=== PATIENT | male | born 1980 | race Caucasian/White ===

== ENCOUNTER 2021-11-29 15:39 | Outpatient (CLI) | payer OTHER, SELFPAY ==
--- NOTE | ~2021-11-29 | US_ITS ---
EXAMINATION: US thyroid DATE: 11/29/2021 16:12 INDICATION: Nontoxic single thyroid nodule TECHNIQUE: Multiple ultrasound images of the thyroid were obtained. COMPARISON: None. FINDINGS: The right thyroid lobe measures 6.4 x 2.6 x 2.1 cm. The left thyroid lobe measures 7.4 x 2.6 x 3.3 c m. 2.1 cm solid isoechoic nodule with ill-defined margins which is not wider than tall and without e chogenic foci in the right thyroid lobe (TI-RADS 3, mildly suspicious , FNA if >=2.5 cm, annual follo wup is >1.5 cm). There are several solid or predominantly solid nodules in the left thyroid with chucho lar imaging features, the largest measuring 2.7 cm and the next largest 2.3 cm . IMPRESSION: 1. Several TI-RADS 3 nodules, the largest measuring 2.7 cm in the left thyroid lobe medially criteria for ultrasound-guided biopsy which would be recommended. Reviewed, dictated and finalized at location A. L FOLDER
== END 2021-11-29 15:40 | disposition home or self-care (01) ==
LOC: ANHIMG 15:42
PROVIDERS: PCP Internal Medicine; Visit Provider Internal Medicine
DX: E04.2 Nontoxic multinodular goiter (principal)
CPT/HCPCS: 76536

== ENCOUNTER 2022-03-09 10:23 | Outpatient (CLI) | payer OTHER, SELFPAY ==
--- NOTE | ~2022-03-09 | US_ITS ---
EXAMINATION: US FNA w image guidance DATE: 03/09/2022 11:46 INDICATION: Left thyroid nodule. TECHNIQUE: The procedure and its benefits and risks were discussed with the patient. Risks specifically discusse d included bleeding. The patient verbalized understanding of the risks and agreed to proceed. The nec k was prepped and draped in the usual sterile manner. 1% lidocaine was used for local anesthesia. 6 passes were made with a 25G needle into the lesion under ultrasound guidance. There were no immedia te complications. FINDINGS: Grayscale ultrasound images demonstrate needles advanced into a 2.7 cm nodule in inferior left thyroi d lobe for biopsy. IMPRESSION: 1. Ultrasound-guided fine needle aspiration of a 2.7 cm nodule in inferior left thyroid lobe. Reviewed, dictated and finalized at location A. IMPRESSION: 1. Ultrasound-guided fine needle aspiration of a 2.7 cm nodule in inferior lef t thyroid lobe.
== END 2022-03-09 10:24 | disposition home or self-care (01) ==
LOC: ANHIMG 10:28
PROVIDERS: PCP Internal Medicine; Visit Provider Internal Medicine Endocrinology, Diabetes & Metabolism
DX: E04.1 Nontoxic single thyroid nodule (principal)
CPT/HCPCS: 10005; 88173; 88305

== ENCOUNTER 2022-04-04 10:11 | Outpatient (CLI) | payer OTHER, SELFPAY ==
--- NOTE | ~2022-04-04 | US_ITS ---
EXAMINATION: US FNA w image guidance DATE: 04/04/2022 10:56 INDICATION: Left thyroid nodule. TECHNIQUE: The procedure and its benefits and risks were discussed with the patient. Risks specifically discusse d included bleeding. The patient verbalized understanding of the risks and agreed to proceed. The nec k was prepped and draped in the usual sterile manner. 1% lidocaine was used for local anesthesia. 6 passes were made with a 25G needle into the lesion under ultrasound guidance. There were no immedia te complications. FINDINGS: Grayscale ultrasound images demonstrate needles advanced into a 2.7 cm nodule in inferior left thyroi d lobe for biopsy. IMPRESSION: 1. Ultrasound-guided fine needle aspiration of a 2.7 cm nodule in inferior left thyroid lobe. Reviewed, dictated and finalized at location A. IMPRESSION: 1. Ultrasound-guided fine needle aspiration of a 2.7 cm nodule in inferior lef t thyroid lobe.
== END 2022-04-04 10:12 | disposition home or self-care (01) ==
PROVIDERS: PCP Internal Medicine; Visit Provider Internal Medicine Endocrinology, Diabetes & Metabolism
DX: E04.1 Nontoxic single thyroid nodule (principal)
CPT/HCPCS: 10005; 88173; 88305

== ENCOUNTER → 2023-07-27 13:57 | Outpatient (CLI) | payer BC, SELFPAY ==
--- NOTE | ~2023-07-27 | XR_ITS ---
EXAMINATION: [id number] INDICATION: Pleurodynia TECHNIQUE: PA view of the chest and 3 views of the left ribs were obtained. COMPARISON: None. FINDINGS: The lungs are free of acute opacities. No pleural effusion or pneumothorax. The cardiomedia stinal silhouette is normal. IMPRESSION: 1. No acute cardiopulmonary abnormality or evidence of displaced rib fracture. Reviewed, dictated and finalized at location B.
== END ==
PROVIDERS: PCP Internal Medicine; Visit Provider Physician Assistant
DX: R07.81 Pleurodynia (principal)
CPT/HCPCS: 71101

== ENCOUNTER 2024-01-02 15:01 | Outpatient (CLI) | payer BC, SELFPAY ==
--- NOTE | ~2024-01-02 | XR_ITS ---
XR chest 2V DATE: 01/02/2024 15:45 INDICATION: Chest pain TECHNIQUE: PA and lateral views COMPARISON: None FINDINGS: Moderate hyperinflation. No pulmonary infiltrate or consolidation, pleural effusion or pulm onary vascular congestion or pneumothorax. Normal heart size. No hilar or mediastinal enlargement. Moderate loss of height and anterior wedging of T12. IMPRESSION: Moderate bilateral hyperinflation; otherwise no active cardiopulmonary disease Reviewed, dictated and finalized at location B. IMPRESSION: Moderate bilateral hyperinflation; otherwise no active cardiopulmon raymond disease
--- NOTE | 2024-01-02 15:13 | ECG_ITS ---
Measurements Intervals [place] Rate: 56 P: 66 VT: 144 QRS: 61 QRSD: 120 T: 18 QT: 384 QTc: 372 Interpretive Statements SINUS BRADYCARDIA INTRAVENTRICULAR CONDUCTION DELAY BORDERLINE T WAVE ABNORMALITY- INFERIOR LEADS BORDERLINE ECG NO PREVIOUS ECG AVAILABLE FOR COMPARISON Electronically Signed On 01-02-2024 16:01:47 CDT by Brian Siddiqui D.O.
== END 2024-01-02 15:02 | disposition home or self-care (01) ==
PROVIDERS: PCP Internal Medicine; Visit Provider Internal Medicine
DX: R07.9 Chest pain, unspecified (principal); I45.9 Conduction disorder, unspecified; R91.8 Other nonspecific abnormal finding of lung field
CPT/HCPCS: 71046; 93005

== ENCOUNTER 2024-06-25 11:07 | Outpatient (CLI) | payer BC, SELFPAY ==
--- NOTE | ~2024-06-25 | XR_ITS ---
EXAMINATION: XR abdomen obstructive series DATE: 06/25/2024 11:26 INDICATION: Abdominal pain. TECHNIQUE: Upright and supine views of the abdomen on 3 radiographs were obtained. COMPARISON: CT abdomen and pelvis 04/30/2014 FINDINGS: There are no dilated loops of bowel. There is a moderate volume of stool in the colon. No f ree intraperitoneal gas. IMPRESSION: 1. Normal bowel gas pattern. Reviewed, dictated and finalized at location A.
--- NOTE | ~2024-06-25 | US_ITS ---
EXAMINATION: US scrotum doppler DATE: 06/25/2024 13:13 INDICATION: Testicular pain and scrotal swelling TECHNIQUE: Testicular sonogram utilizing grayscale and Doppler COMPARISON: None. FINDINGS: The right testis measures 4.6 x 2.5 x 4.0 cm. The left testis measures 4.1 x 2.4 x 3.2 cm. Symmetric normal grayscale appearance to both testes. There is normal vascular flow to both testes. The right e pididymis is normal with normal vascular flow. The left epididymis appears thickened with increased v ascular flow on Valsalva suspicious for epididymitis.. Mild bilateral varicoceles with borderline dil ated veins which augment with Valsalva on both the left and right. No right-sided hydrocele and minim al left hydrocele. IMPRESSION: 1. Enlarged hypoechoic left epididymis with increased vascular flow on color Doppler and minimal lef t hydrocele suspicious for epididymitis. Reviewed, dictated and finalized at location B. IMPRESSION: 1. Enlarged hypoechoic left epididymis with increased vascular flow on color D oppler and minimal left hydrocele suspicious for epididymitis.
== END 2024-06-25 11:08 | disposition home or self-care (01) ==
PROVIDERS: PCP Family Medicine; Visit Provider Family Medicine
DX: N50.819 Testicular pain, unspecified (principal)
CPT/HCPCS: 74019; 76870; 93976

== ENCOUNTER 2025-01-20 12:10 | Outpatient (CLI) | payer BC, SELFPAY ==
--- NOTE | ~2025-01-20 | XR_ITS ---
XR knee LT min 4V Ordering provider: Amy Rogers APRN History: . M25.562 - Pain in left knee . Comparison: None. FINDINGS: BONES: No acute fracture or dislocation. JOINT SPACES: Normal. SOFT TISSUES: Normal. IMPRESSION: No acute osseous abnormality left knee. Reviewed, dictated and finalized at location A.
--- OUTSIDE RECORDS SUMMARY | 2025-01-20 13:26 | XMS_ITS | Clinical Summary ---
Author Organization [address] Address [address] [place] [address] Care Team Providers Care Sales Research Analyst Name Role Phone Isaac Santos MD Primary Care Provider [phone] Allergies Active Allergy Reactions Criticality Noted Date Comments Ciprofloxacin Mental status changes Low 02/09/2019 Erythromycin Other (See comments) Low 07/05/2024 Pt does not remember Levofloxacin Nausea & Vomiting Low 07/05/2024 Feels flush Medications atenolol (TENORMIN) 50 mg tablet Take 1 tablet (50 mg total) by mouth daily Active hydrocortisone 2.5 % cream 9 Active citalopram (CeleXA) 10 mg tablet Take 1 tablet (10 mg total) by mouth daily 2 Active loratadine (CLARITIN) 10 mg tablet Take 1 tablet (10 mg total) by mouth daily Active guaiFENesin ER (MUCINEX) 600 mg 12 hr tablet Take 2 tablets (1,200 mg total) by mouth 2 (two) times a day Active fluticasone propionate (FLONASE) 50 mcg/actuation nasal spray Administer 1 spray into each nostril daily Active benzonatate (TESSALON) 100 mg capsuleIndicati ons:Cough Take 1 capsule (100 mg total) by mouth 3 (three) times a day as needed for cough 42 capsule 3 Active Additional Information Patient not taking.Reported on 10/10/2023 predniSONE (DELTASONE) 5 mg tablet TAKE 6 BY MOUTH TODAY. DECREASING DOSE BY ONE TABLET DAILY UNTIL GONE 4 Active albuterol HFA (PROVENTIL HFA,VENTOLIN HFA,PROAIR HFA) 90 mcg/actuation inhalerIndicati ons:Acute cough Inhale 2 puffs every 6 (six) hours as needed for wheezing 8 g 4 01/25/20 25 Active omeprazole (PriLOSEC) 20 mg capsule Take 1 capsule (20 mg total) by mouth daily 4 Active azithromycin (ZITHROMAX) 250 mg tabletIndicatio ns:Epididymitis Take 2 tablets the first day, then 1 tablet daily for 4 days. 6 tablet 4 Active Active Problems No known active problems Immunizations Immunization Administration Dates Next Due Influenza, Trivalent, IM (MDV) 10/31/2015,2012,08/04/2013 Influenza, Trivalent, Preser vative Free, Intramuscular 11/15/2016 Surgical History Surgery Date Site/Laterality Comments TONSILLECTOMY Medical History Medical History Date Comments Hypertension Social History Tobacco Use Types Packs/Day Years Used Date Smoking Tobacco: Never Smokeless Tobacco: Never Tobacco Cessation:Counseling Given: Not Answered PHQ-2 Answer Date Recorded PHQ-2 Score 0 10/18/2019 Personal Safety Answer Date Recorded Have you ever been in or are you currently in a harmful physical or emotional relationship or is someone making you feel afraid or unsafe? 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 Gender Identity Not on file Sexual Orientation Not on file Obstetrics History Last Filed Vital Signs Vital Sign Reading Time Taken Comments Blood Pressure 134/80 07/09/2024 10:00 PM CDT Pulse 54 07/09/2024 10:00 PM CDT Temperature 36.8 C (98.2 F) 07/09/2024 6:52 PM CDT Respiratory Rate 17 07/09/2024 10:00 PM CDT Oxygen Saturation 97% 07/09/2024 10:00 PM CDT Inhaled Oxygen Concentration - - Weight 102.1 kg (225 lb) 07/09/2024 5:20 PM CDT Height 177.8 cm (5' 10 ) 07/09/2024 5:20 PM CDT Body Mass Index 32.28 07/09/2024 5:20 PM CDT Plan of Treatment Health Maintenance Due Date Last Done Comments Hepatitis C Screening 1980 Varicella Vaccines (1 of 2 - 13+ 2-dose series) 02/24/1993 Hepatitis B Screening 02/24/1998 Regular Well Visit/Exam 18-64 02/24/1998 Depression Screening 10/18/2020 10/18/2019 Influenza Vaccine (Season Ended) 2025 11/15/2016, 10/31/2015, 08/07/2013, Additional history exists DTaP/Tdap/Td Vaccine (2 - Td or Tdap) 09/29/2031 09/29/2021 HPV Vaccines Aged Out No longer eligi ble based on patient's age to complete this topic Pneumococcal vaccine <65 Aged Out No longer eligible based on patient's age to complete this topic Insurance [facility] Address: [place] [id number] [place] [address] Care Teams Sales Research Analyst Relationship Specialty Start Date End Date Isaac Santos MD PCP - General Family Practice 07/09/24
--- OUTSIDE RECORDS SUMMARY | 2025-01-20 13:26 | XMS_ITS | Continuity of Care Document ---
Author Organization [facility] Address [address] [place] [address] [place] [address] Phone Care Team Providers Care Farm Equipment Assembler Name Role Phone Khoa Mota DO Unavailable Unavailable Advance Directives Directive Yes / No Effective Date File Name No Information Encounters Encounter Description Practice Location Reason(s) For Visit Diagnoses Date Provider Providers Copied on Encounter formerly [facility], [id number] [place] [address] [address], [place], [place], [id number], [place] tel:[phone] [facility] No Information Nakul Gaines. [address] [facility], [place], [address], [place]. tel:[phone] Family History Family Member Type Diagnosis Age At Onset No Information Payers Payer name Insurance type Covered libertarian ID Authoriza tion(s) No Information Social History Type Description Quantity Date Captured Comments Sex Male Smoking Status No Information Chief Complaint And Reason For Visit No Information Reason For Referral Reason For Referral No Information History Of Present Illness Encounter Date Complaint History Of Prese nt Illness No Information Functional Status Date Functional Assessmen t No Information Instructions Date Instruction Additional Infor mation No Information Assessments Type Assessment Date No Information Patient Care Teams Name Effective Dates (start - stop) Status Members No Information
--- OUTSIDE RECORDS SUMMARY | 2025-01-20 13:26 | XMS_ITS | Referral Summary ---
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
--- OUTSIDE RECORDS SUMMARY | 2025-01-20 13:26 | XMS_ITS | Clinical Summary ---
Author Organization [facility] Address [address] [place] [address] Phone Care Team Providers Care Photographic Artist Name Role Phone Jn Looney DO Primary Care Provider [phone] Allergies Active Allergy Reactions Criticality Noted Date Comments Ciprofloxacin Other (see Comments) Low 02/09/2019 Erythromycin Unknown 10/21/2019 Medications atenolol (TENORMIN) 50 MG Tablet Take 50 mg by mouth daily. Active citalopram (CeleXA) 10 MG Tablet Take 1 Tablet by mouth daily. 11/13/2023 Active albuterol 108 (90 Base) MCG/ACT Aerosol Solution take 2 Puffs by inhalation. 08/16/2023 Active methylPREDNISol one (MEDROL DOSPACK) 4 MG Tablet Therapy Pack See product package insert for dosing schedule 21 Tablet 02/24/2024 Active Active Problems No known active problems Immunizations Immunization Administration Dates Next Due Influenza Vaccine 11/15/2016 Influenza, Seasonal, Injectable, Undefined 10/31,08/07/2013,08/04/2013 TDAP Vaccine 09/29/2021 Social History Tobacco Use Types Packs/Day Years Used Date Smoking Tobacco: Never Smokeless Tobacco: Never Tobacco Cessation:Counseling Given: Not Answered Alcohol Use Standard Drinks/Week Comments Yes 0 (1 standard drink = 0.6 oz pur e alcohol) Occasionally Sex and Gender Information Value Date Recorded Sex Assigned at Male 02/24/2024 12:13 AM CDT 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 Gender Identity Male 02/24/2024 12:13 AM CDT Sexual Orientation Not on file Last Filed Vital Signs Vital Sign Reading Time Taken Comments Blood Pressure 150/74 07/06/2024 7:31 PM CDT Pulse 74 07/06/2024 7:31 PM CDT Temperature 37 C (98.6 F) 07/06/2024 5:29 PM CDT Respiratory Rate 18 07/06/2024 7:31 PM CDT Oxygen Saturation 100% 07/06/2024 7:31 PM CDT Inhaled Oxygen Concentration - - Weight 99.8 kg (220 lb) 07/06/2024 5:29 PM CDT Height 182.9 cm (6') 07/06/2024 5:29 PM CDT Body Mass Index 29.84 07/06/2024 5:29 PM CDT Plan of Treatment Health Maintenance Due Date Last Done Comments Hepatitis C Virus (HCV) Screening 1980 Hepatitis B Immunization (1 of 3 - 19+ 3-dose series) 02/24/1999 Influenza Immunization (#1) 2024 02/0 10/2016, 10/31/2015, 08/07/2013, Additional history exists SARS-COV-2 Immunization ( season) 2024 10/16/2021, 01/08/2021, 12/14/2020 Td Immunization Every 10 Years (Adults With 1 Tdap) 09/29/2031 09/29/2021 Respiratory Syncytial Virus (RSV) Immunization (Adult) (1 - 1-dose 75+ series) 02/24/2055 DTaP/Tdap/Td Immunization Discontinued 09/29/2021 Meningococcal Immunization (ACWY) Aged Out No longer eligible based on patient's age to complete this topic Pneumococcal Immunization Combined Aged Out No longer eligible based on patient's age to complete this topic Rotavirus Immunization Aged Out No lo nger eligible based on patient's age to complete this topic Insurance [facility] [employer] Care Teams Photographic Artist Relationship Specialty Start Date End Date Jn Looney DO [address] [place] [address] PCP - General Internal Medicine 12/11/18
== END 2025-01-20 12:11 | disposition home or self-care (01) ==
PROVIDERS: PCP Family Medicine; Visit Provider Nurse Practitioner Family
DX: M25.562 Pain in left knee (principal)
CPT/HCPCS: 73564